=== PATIENT | male | born 1960 | race Caucasian/White ===

== ENCOUNTER → 2022-06-25 | Outpatient (CLI) | payer OTHER ==
--- NOTE | 2022-06-25 15:30 | US ---
EXAMINATION TYPE: US kidneys/renal and bladder DATE OF EXAM: 06/25/2022 COMPARISON: NONE CLINICAL HISTORY: R94.5 ABN LIVER FUNCTION TESTS. Pt states recent abnormal labs EXAM MEASUREMENTS: Right Kidney: 12.0 x 6.8 x 6.0 cm Left Kidney: 12.5 x 6.6 x 5.5 cm Right Kidney: Lobulated contour, otherwise appeared wnl Left Kidney: Lobulated contour, otherwise appeared wnl Bladder: wnl Bilateral Jets seen: No IMPRESSION: 1. No suspicious abnormality renal ultrasound
== END | disposition home or self-care (01) ==
LOC: RADUSWWP 15:06
PROVIDERS: ATTEND Family Medicine
DX: R94.4 Abnormal results of kidney function studies (principal)
CPT/HCPCS: 76770